=== PATIENT | female | born 1980 | race Hispanic/Latino ===

== ENCOUNTER 2016-09-09 08:18 | Emergency (ER) | payer OTHER ==
[~2016-09-09] VITALS: Ht 160 cm; Wt 82.6 kg
[2016-09-09 08:22] VITALS: BP 119/77
--- NOTE | 2016-09-09 09:28 | ED NECK/BACK PAIN COMPLAINT ---
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 PT BENGALI SPEAKING, FRIEND WITH PT TO TRANSLATE. PAIN IS NONRADIATING. REFUSING PAIN MEDS IN TRIAGE, WANTS TO SEE PROVIDER FIRST. Triage Nurses Notes Reviewed? 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 Patient states she felt a snap in the area with a resulting constant sharp severe pain gets worse with movement and palpation. She also gets occasional radiation of the pain to the anterior right thigh. Patient denies any associated urinary or fecal incontinence or urinary retention. She tried 2 Advil tablets without relief yesterday. Past History Travel History Traveled to [place] past 21 day No Medical History Any Pertinent Medical History? 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 No Review of Systems Review of Systems Constitutional: Reports: no symptoms. Eyes: Reports: no symptoms. Ears, Nose, Throat, Mouth: Reports: no symptoms. Respiratory: Reports: no symptoms. Cardiovascular: Reports: no symptoms. Gastrointestinal/Abdominal: Reports: no symptoms. Musculoskeletal: Reports: see HPI. Skin: Reports: no symptoms. Neurological/Psychological: Reports: no symptoms. All Other Systems: Reviewed and Negative Physical Exam Physical Exam Neck: SEE BELOW Comments: Gen.: Well-nourished, well-developed, no acute respiratory distress. Head: Normocephalic, atraumatic. Eyes: Normal inspection bilaterally Ears: Normal inspection bilaterally Nose: Normal inspection, nasal cannula in place Throat/mouth : Moist mucosa Neck: Supple, full range of motion, no goiter Heart: Regular rate and rhythm Lungs: Quiet respirations Back: Decreased range of motion due to pain, tenderness over the right lumbar musculature and sacroiliac region, no ecchymoses and soft tissue swelling or erythema, nontender over spine Extremities: Right lower extremity: Neurovascularly intact, sensation intact to light touch, deep tendon reflexes normal, no straight leg raise sign, no saddle paresthesia Neurologic: Cranial nerves grossly intact, speech is clear Skin: warm and dry Psychiatric: Calm, cooperative, no apparent delusions or hallucinations Progress Differential Diagnosis: cauda equina syn, herniated disc, myofascial strain, sciatica Plan of Care: Current Medications Sig/Negro Start time Last Medication Dose Stop Time Status Admin Cyclobenzaprine HCl 10 MG ONCE ONE 09/09 944 UNVr (Flexeril 10MG Tab) 09/09 945 Ketorolac 30 MG ONCE ONE 09/09 944 UNVr Tromethamine 09/09 945 (Toradol) Departure Departure Disposition: HOME OR SELF CARE Condition: Stable Clinical Impression Primary Impression: Low back strain Qualifiers: Encounter type: initial encounter Qualified Code: S39.012A - Strain of muscle, fascia and tendon of lower back, initial encounter Referrals: PATIENT HAS NO PRIMARY CARE DR (PCP/Family) Additional Instructions: Rest, no exertion or heavy lifting. Diclofenac and Flexeril as prescribed for your back pain. Follow-up with your primary care doctor if not improved in one week. Return to the emergency department immediately if any concerns or sudden worsening. Thank you for choosing the [facility] for your care. It was a pleasure to serve you today. Donavan Sifuentes M.D. [facility] Departure Forms: Customer Survey General Discharge Information Prescriptions: Current Visit Scripts Diclofenac Potassium 1 TAB PO TID PRN PAIN #30 TAB Cyclobenzaprine HCl 1 TAB PO TID PRN BACK PAIN/SPASMS #15 TAB
[2016-09-09] MEDS ORDERED: DICLOFENAC POTA50 M1 PO (09:41)
[2016-09-09] MEDS ORDERED: CYCLOBENZAPRINE10 M1 PO (09:41)
== END 2016-09-09 09:50 ==
LOC: ERH 08:18
DX: S39.012A Strain of muscle, fascia and tendon of lower back, initial encounter (principal); X50.9XXA Other and unspecified overexertion or strenuous movements or postures, initial encounter; Y93.E2 Activity, laundry; Y92.9 Unspecified place or not applicable
CPT/HCPCS: 96372; J1885

== ENCOUNTER 2017-08-17 19:20 | Emergency (ER) | payer OTHER ==
[~2017-08-17 19:20] MED LIST: CYCLOBENZAPRINE10 M1 PO; DICLOFENAC POTA50 M1 PO
[2017-08-17 19:27] VITALS: BP 125/77
--- NOTE | 2017-08-17 19:39 | ED NECK/BACK PAIN COMPLAINT ---
History of Present Illness General Chief Complaint: General Adult Stated Complaint: "BACK PAIN RAIDIATING TO BOTH THIGHS" Source: patient Exam Limitations: no limitations Vital Signs & Intake/Output Vital Signs & Intake/Output Vital Signs Date Time Temp Pulse Resp B/P B/P Pulse O2 O2 Flow FiO2 Mean Ox Delivery Rate 08/18 1951 97 Room Air 08/17 1926 97.0 76 22 125/77 96 Allergies Coded Allergies: No Known Allergies (09/09/16) Reconcile Medications Cyclobenzaprine HCl 10 MG TABLET 1 TAB PO 4 TIMES/DAY PRN MUSCLE SPASM Ibuprofen 800 MG TABLET 1 TAB PO TID PRN pain Oxycodone HCl/Acetaminophen (Percocet 5-325 MG Tablet) 5 MG-325 MG TABLET 1 TAB PO 4XDP PRN PAIN six...[id number] Triage Note: PER PT 3 DAY HX OF LOW BACK PAIN WITH RADIATION TO BILAT THIGHS HX OF L5 DISC PROBLEM LMP 08/05 Triage Nurses Notes Reviewed? yes Onset: Gradual Duration: day(s): Timing: recent history Quality/Severity: moderate Location: lumbar spine Radiation: upper legs Context: turning/bending Method of Injury: "chronic back pain" Loss of Consciousness: no loss of consciousness Modifying Factors: movement : No Patient currently breastfeeds: No HPI: 37 yo woman, h/o disc herniation in the past, presents with lower lumbar paravertebral back pain with muscle spasm for the past 3 days. She has been taking tramadol and naprosyn without relief. She notes pain with movement and pain radiating into her upper thighs. No bowel or bladder issues. Past History Travel History Traveled to [place] past 21 day No Medical History Any Pertinent Medical History? 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 No Review of Systems Review of Systems Constitutional: Reports: no symptoms. Eyes: Reports: no symptoms. Ears, Nose, Throat, Mouth: Reports: no symptoms. Respiratory: Reports: no symptoms. Cardiovascular: Reports: no symptoms. Gastrointestinal/Abdominal: Reports: no symptoms. Musculoskeletal: Reports: no symptoms. Skin: Reports: no symptoms. Neurological/Psychological: Reports: no symptoms. All Other Systems: Reviewed and Negative Physical Exam Physical Exam General Appearance: well developed/nourished, mild distress Head: atraumatic Eyes: Bilateral: normal appearance. Ears, Nose, Throat, Mouth: hearing grossly normal Neck: normal inspection, supple, full range of motion, normal alignment Respiratory: normal breath sounds Back: muscle spasm, no vertebral tenderness Straight Leg Raising: Right: Negative. Left: Negative. Comments: light touch, strength, dtr's symmetrical and normal in both lower extremities. Core Measures CVA/TIA Diagnosis: No Progress Differential Diagnosis: herniated disc, myofascial strain, vs other Plan of Care: gave toradol and percocet... sent rx for percocet, nsaids, flexeril... close follow up advised. Departure Departure Disposition: HOME OR SELF CARE Condition: Stable Clinical Impression Primary Impression: Back pain Secondary Impressions: Radiculopathy Referrals: Unknown (PCP/Family) Departure Forms: Customer Survey General Discharge Information Prescriptions: Current Visit Scripts Oxycodone HCl/Acetaminophen (Percocet 5-325 MG Tablet) 1 TAB PO 4XDP PRN PAIN #6 TAB six...[id number] Ibuprofen 1 TAB PO TID PRN pain #30 TAB Cyclobenzaprine HCl 1 TAB PO 4 TIMES/DAY PRN MUSCLE SPASM #30 TAB Ref 1
[2017-08-17] MEDS ORDERED: CYCLOBENZAPRINE10 M1 PO (19:45)
[2017-08-17] MEDS ORDERED: PERCOCET 5-3251 EACH PO (19:45)
[2017-08-17] MEDS ORDERED: IBUPROFEN800 M1 PO (19:45)
== END 2017-08-17 20:04 ==
LOC: ERH 19:20
DX: M54.5 Low back pain (principal); M54.16 Radiculopathy, lumbar region
CPT/HCPCS: 96372; J1885